=== PATIENT | female | born 1965 | race Caucasian/White ===

== ENCOUNTER 2016-06-17 18:06 | Emergency (ER) | payer OTHER ==
[~2016-06-17] VITALS: Ht 167.6 cm; Wt 63.5 kg
[~2016-06-17 18:06] MED LIST: ASPIRIN325 M2 PO; ATORVASTATIN CA40 M1 PO; CAMBIA50 MG; CETIRIZINE HCL10 MG PO; EPITOL200 MG PO; ESCITALOPRAM OX10 MG PO; FAMOTIDINE20 M1 PO; METOPROLOL TART25 M1 PO; NORTRIPTYLINE H10 M1 PO; NORTRIPTYLINE H25 M2 PO; NORTRIPTYLINE25 MG PO; PLAVIX75 M1 PO; PROAIR HFA0.09 MG/Ac INH; SPIRIVA 18 MCG18 MCG INH
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
--- NOTE | 2016-06-17 20:41 | CT SCAN REPORT ---
EXAMINATION: CT HEAD WITHOUT CONTRAST CLINICAL INFORMATION: Concussion. Rule out bleed. Headache. COMPARISON: None TECHNIQUE: Contiguous axial imaging was performed from the skull base to vertex without intravenous administration of contrast. DLP: 600.71 mGy-cm FINDINGS: There is no evidence of acute intracranial hemorrhage or territorial infarction. No abnormal mass effect or midline shift is seen. Aiken to white matter differentiation is well preserved. No extra-axial fluid collections are identified. The ventricles are normal in size. There is no abnormal attenuation within the brain parenchyma. The osseous structures and soft tissues are normal. The mastoid air cells and visualized portions of the paranasal sinuses are well aerated. There are moderate degenerative changes in the right TMJ. IMPRESSION: No acute intracranial pathology.
[2016-06-17] MEDS ORDERED: ZOFRAN ODT4 M1 SL (20:50)
[2016-06-17 21:06] VITALS: BP 148/62
== END 2016-06-17 21:07 ==
LOC: ERH 18:06
DX: S16.1XXA Strain of muscle, fascia and tendon at neck level, initial encounter (principal); S06.0X9A Concussion with loss of consciousness of unspecified duration, initial encounter; Y04.8XXA Assault by other bodily force, initial encounter
CPT/HCPCS: J3101

== ENCOUNTER 2016-06-23 15:43 | Emergency (ER) | payer OTHER ==
[~2016-06-23 15:43] MED LIST changes: +ZOFRAN ODT4 M1 SL
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
--- NOTE | 2016-06-23 18:10 | CT SCAN REPORT ---
EXAMINATION: CT HEAD AND CERVICAL SPINE WITHOUT CONTRAST CLINICAL INFORMATION: Worsening headache. Trauma. COMPARISON: CT cervical spine 09/19/2008. TECHNIQUE: Contiguous axial imaging was performed from the thoracic inlet to the vertex without intravenous administration of contrast. 2-D coronal and sagittal reformatted images of the cervical spine were obtained at the acquisition workstation. DLP: 926 mGy-cm. FINDINGS: Head: No acute intracranial abnormality. No acute intracranial hemorrhage, mass or mass effect or abnormal extra-axial fluid collections. The density within the dural venous sinuses is within normal limits. The ventricles are normal in size, without hydrocephalus. There are no focal areas of hypoattenuation within a vascular distribution to suggest acute transcortical ischemia. The basilar cisterns are patent. No acute calvarial abnormality is identified. Soft tissues appear unremarkable. The imaged paranasal sinuses and mastoid air cells are well aerated. Cervical spine: Mild multilevel degenerative changes of the cervical spine. No acute cervical spine fractures or subluxations. Vertebral body heights are preserved. The atlantoaxial and craniocervical junctions are intact. Prevertebral soft tissues are within normal limits. The included bilateral lung apices are clear. IMPRESSION: 1. No acute intracranial pathology. 2. Mild multilevel degenerative changes of the cervical spine. No acute cervical spine fracture or subluxation.
[2016-06-23] MEDS ORDERED: ZOFRAN ODT4 M1 SL (18:16)
[2016-06-23] MEDS ORDERED: TYLENOL WITH C1 EACH PO (18:16)
[2016-06-23] MEDS ORDERED: MECLIZINE HCL25 MG PO (18:16)
[2016-06-23 18:38] VITALS: BP 115/64
== END 2016-06-23 18:40 ==
LOC: ERH 15:43
DX: F07.81 Postconcussional syndrome (principal)
CPT/HCPCS: J3101